=== PATIENT | male | born 1960 | race Asian ===

== ENCOUNTER 2022-05-03 16:39 | Emergency (ER) | payer OTHER ==
[~2022-05-03] VITALS: Ht 167.6 cm; Wt 63.5 kg
[2022-05-03 16:47] VITALS: BP 152/87
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
[2022-05-03] MEDS ORDERED: IBUP-2213 PO (19:27)
[2022-05-03] MEDS ORDERED: ACET-8905 PO (19:27)
--- NOTE | 2022-05-03 19:29 | NUR ---
Patiet lying in bed, A/Ox4, chest rise and fall symmetrical, no c/o pain or s/s of distress.
[2022-05-03 19:46] VITALS: BP 135/74
== END 2022-05-03 19:47 | disposition home or self-care (01) ==
LOC: MED 16:39
DX: R07.89 Other chest pain (principal); M79.642 Pain in left hand; V89.2XXA Person injured in unspecified motor-vehicle accident, traffic, initial encounter; Y93.89 Activity, other specified; Y92.410 Unspecified street and highway as the place of occurrence of the external cause; Y99.8 Other external cause status
CPT/HCPCS: 71045; 73130; 99284